=== PATIENT | male | born 1970 | race Caucasian/White ===

== ENCOUNTER 2020-11-17 14:09 | Emergency (ER) | payer OTHER ==
[~2020-11-17] VITALS: Ht 160 cm; Wt 72.6 kg
[2020-11-17 14:14] VITALS: BP 139/79
--- NOTE | 2020-11-17 14:14 | NUR ---
PT BIBA TO BED 09
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
--- NOTE | 2020-11-17 15:00 | NUR ---
WOUND IRRIGATED WITH SALINE ON LATERAL LEFT EYEBROW LACERATION
[2020-11-17] MEDS: NACL 0.9% 1,000 ML IV SCH (15:16)
[2020-11-17] MEDS: ONDANSETRON 4 MG/2 ML VIAL IVP ONE (15:18)
[2020-11-17] MEDS: FOLIC ACID 1 MG TAB PO ONE (15:18)
[2020-11-17] MEDS: THIAMINE 200 MG/2 ML VIAL IM ONE (15:19)
[2020-11-17 15:23] LABS: BASOPHILS # (AUTO) 0.1 K/uL (0.00-0.22); BASOPHILS % (AUTO) 1.5 % (0.0-2.0); EOSINOPHILS % (AUTO) 0.6 % (0.0-4.0); HEMATOCRIT 41.7 % (36-52); LYMPHOCYTES # (AUTO) 2.1 K/uL (2.0-11.5); LYMPHOCYTES % (AUTO) 28.9 % (20.5-51.1); MEAN CORPUSCULAR HEMOGLOBIN 33 pg (27-31); MEAN CORPUSCULAR HGB CONC 34 g/dL (33-37); MEAN CORPUSCULAR VOLUME 96.6 fL (80-94); MONOCYTES # (AUTO) 0.5 K/uL (0.8-1.0); MONOCYTES % (AUTO) 7.6 % (1.7-9.3); NEUTROPHILS # (AUTO) 4.4 K/uL (1.8-7.7); NEUTROPHILS % (AUTO) 61.4 % (42.2-75.2); PLATELET COUNT (AUTO) 234 K/uL (140-450); RED BLOOD CELL COUNT(AUTO) 4.32 MIL/uL (4.20-6.10); RED CELL DISTRIBUTION WIDTH 14.2 % (11.6-13.7); WHITE BLOOD COUNT (AUTO) 7.2 K/uL (4.8-10.8)
[2020-11-17 15:40] LABS: ALBUMIN 3.4 g/dL (3.4-5.0); ANION GAP 16.9 (8-16); CARBON DIOXIDE 21.2 mmol/L (21-32); CREATININE 0.7 mg/dL (0.6-1.3); POTASSIUM 3.1 mmol/L (3.5-5.1); TOTAL BILIRUBIN 0.4 mg/dL (0.0-1.0)
--- NOTE | 2020-11-17 15:44 | NUR ---
Patient ambulated to restroom with steady gait.
--- NOTE | 2020-11-17 15:59 | NUR ---
STERI STRIPS AND BETADINE APPLIED THE LEFT LATERAL EYEBROW LACERATION PER ORDERS OF DR KUMARI
[2020-11-17] MEDS ORDERED: LIB25 PO (16:05)
[2020-11-17] MEDS: POTASSIUM CHLORIDE 10 MEQ TABER PO ONE (16:13)
[2020-11-17 16:41] VITALS: BP 139/79
--- NOTE | 2020-11-17 16:42 | NUR ---
Patient discharged with v/s stable. Written and verbal after care instructions given and explained. Patient alert, oriented and verbalized understanding of instructions. Ambulatory with steady gait. All questions addressed prior to discharge. ID band removed. Patient advised to follow up with PMD. Rx of Librium given. Patient educated on indication of medication including possible reaction and side effects. Opportunity to ask questions provided and answered.
== END 2020-11-17 16:40 | disposition home or self-care (01) ==
LOC: MED 14:09
DX: S01.112A Laceration without foreign body of left eyelid and periocular area, initial encounter (principal); F10.129 Alcohol abuse with intoxication, unspecified; Y04.0XXA Assault by unarmed brawl or fight, initial encounter; Y93.89 Activity, other specified; Y92.89 Other specified places as the place of occurrence of the external cause; Y99.8 Other external cause status
CPT/HCPCS: 36415; 70450; 72125; 80053; 84484; 85025; 90471; 90715; 93005; 96361; 96372; 96374; 99284; G0482; J2405; J3411; J7030